=== PATIENT | female | born 1995 | race Hispanic/Latino ===

== ENCOUNTER 2019-08-02 14:32 | Emergency (ER) | payer OTHER ==
[~2019-08-02 14:32] MED LIST: PNV1TABL77 PO
[2019-08-02] MEDS ORDERED: ONDANSETRON ODT 4 MG TAB ONE (15:33)
[2019-08-02] MEDS ORDERED: HYDROCODONE/ACETAMINOPHEN 10/325 MG TAB ONE (15:33)
== END 2019-08-02 17:08 | disposition home or self-care (01) ==
LOC: EDH 14:32
DX: M54.5 Low back pain (principal); R53.1 Weakness
CPT/HCPCS: 81025

== ENCOUNTER → 2019-08-06 | Outpatient (CLI) | payer OTHER | END | disposition home or self-care (01) | LOC: RAH 11:29 | PROVIDERS: ATTEND Physical Medicine & Rehabilitation | DX: M54.5 Low back pain (principal) | CPT/HCPCS: 72110 ==